=== PATIENT | female | born 1975 | race Caucasian/White ===

== ENCOUNTER 2016-08-18 09:00 | Emergency (ER) | payer BC, OTHER ==
--- NOTE | 2016-08-18 09:48 | UC ---
General HPI - HPI Summary HPI Summary: Patient presents with a request for blood work for PEP for work. She states yesterday after cleaning, she had already removed her gloves when a patron of her work handed her a used tampon applicator. She immediately placed it in the garbage and washed her hands thoroughly. She denies any scrapes or cuts or other open areas of her body. She is otherwise healthy and takes no medications. This has never happened before and she is unaware of the patron's medical status, HIV or Hep status, etc. - History of Current Complaint Chief Complaint: UCBodyFluidExposure Stated Complaint: BLOOD WORK NEEDED Time Seen by Provider: 08/18/16 09:16 Hx Obtained From: Patient Onset/Duration: Sudden Onset Timing: Constant Onset Severity: Mild Current Severity: Mild - Allergy/Home Medications Allergies/Adverse Reactions: Allergies Allergy/AdvReac Type Severity Reaction Status Date / Time Penicillins [PCN] Allergy Hives Verified 08/18/16 09:08 Home Medications: Home Medications NK [No Home Medications Reported] 08/18/16 [History Confirmed 08/18/16] PMH/Surg Hx/FS Hx/Imm Hx Previously Healthy: Yes - Surgical History Surgical History: None - Family History Known Family History: Positive: Unknown - Social History Occupation: Employed Full-time Lives: With Family Alcohol Use: None Substance Use Type: None Smoking Status (MU): Never Smoked Tobacco Review of Systems Constitutional: Negative Skin: Negative Eyes: Negative Respiratory: Negative Cardiovascular: Negative Neurovascular: Negative Musculoskeletal: Negative Psychological: Negative All Other Systems Reviewed And Are Negative: Yes Physical Exam Triage Information Reviewed: Yes Appearance: Well-Appearing, No Pain Distress, Well-Nourished Vital Signs: Initial Vital Signs Temp 99.0 F 08/18/16 09:04 Pulse 81 08/18/16 09:04 Resp 18 08/18/16 09:04 BP 166/112 08/18/16 09:04 Pulse Ox 99 08/18/16 09:04 Vital Signs Reviewed: Yes Eye Exam: Normal Eyes: Positive: Conjunctiva Clear Neck exam: Normal Neck: Positive: Supple, Nontender, No Lymphadenopathy Respiratory Exam: Normal Respiratory: Positive: Chest non-tender, Lungs clear Cardiovascular Exam: Normal Cardiovascular: Positive: RRR Musculoskeletal Exam: Normal Musculoskeletal: Positive: Strength Intact Neurological Exam: Normal Neurological: Positive: Alert Psychological: Positive: Normal Response To Family, Age Appropriate Behavior Skin Exam: Normal Course/Dx - Course Course Of Treatment: Patient was given PEP explanation and ordered the appropriate labs for PEP. Educated patient on HIV and she would like to defer at this time for HIV treatment. Will call within 2-3 days for results. Patients high blood pressure was noted. Advised to follow up next week for BP check up. Medications were reviewed with patient. Patient agrees to follow up with PCP and is OK with discharge plan. 188/103 last BP check. - Differential Dx - Multi-Symptom Differential Diagnoses: Other - PEP; exposure, HIV, blood borne illness, HTN Provider Diagnoses: PEP prophylaxis for blood exposure Discharge - Discharge Plan Condition: Stable Disposition: HOME
[2016-08-18 09:54] VITALS: BP 188/103
[2016-08-18 12:20] LABS: Hematocrit 39 % (35-47); Hemoglobin 12.7 g/dl (12.0-16.0); Mean Corpuscular HGB Conc 33 g/dl (31-36); Mean Corpuscular Hemoglobin 28 pg (27-31); Mean Corpuscular Volume 85 fL (80-97); Mean Platelet Volume 8 um3 (7.4-10.4); Red Cell Distribution Width 15 % (10.5-15); White Blood Count 7.5 10^3/ul (3.5-10.8)
[2016-08-18 12:38] LABS: ALT 14 U/L (7-52); AST 16 U/L (13-39); Albumin 4.1 g/dL (3.2-5.2); Alkaline Phosphatase 56 U/L (34-104); Anion Gap 6 mmol/L (2-11); BUN/Creatinine Ratio 15.2 (8-20); Blood Urea Nitrogen 15 mg/dL (6-24); CO2 Carbon Dioxide 27 mmol/L (22-32); Calcium 9.3 mg/dL (8.6-10.3); Chloride 106 mmol/L (101-111); EGFR African American 80.3 (>60); EGFR Non-African American 62.4 (>60); Globulin 2.7 g/dL (2-4); Glucose 105 mg/dL (70-100); Potassium 4.3 mmol/L (3.5-5.0); Sodium 139 mmol/L (133-145); Total Protein 6.8 g/dL (6.4-8.9)
--- NOTE | 2016-08-19 10:39 | ED ---
Course/Dx - Course Course Of Treatment: LAB RESULTS. CBC NL. GLUCOSE ELEVATED AT 105 (NL 70-100) . CREATININE ELEVATED AT 0.99 (NL 0.51-0.95). REST OF CMP NL. NEGATIVE. HEPATITIS SCREEN NEGATIVE. NURSING TO CALL PATIENT AND INFORM OF RESULT. PATIENT TO F/U WITH PMD FOR NON URGENT RECHECK OF BLOOD SUGAR AND CREATININE AND FOR ANY FURTHER POST BLOOD EXPOSURE FOLLOW UP - Diagnoses Provider Diagnoses: Exposure to blood
== END 2016-08-18 09:59 | disposition home or self-care (01) ==
LOC: UCEAST 09:00
DX: Z77.21 Contact with and (suspected) exposure to potentially hazardous body fluids (principal)
CPT/HCPCS: 36415; 80053; 84702; 85025; 86703; 86706; 86803; 87340; 99202; G0463

== ENCOUNTER 2017-10-17 07:13 | Emergency (ER) | payer BC, OTHER ==
[2017-10-17 07:26] VITALS: BP 185/97
--- NOTE | 2017-10-17 07:40 | ED ---
Complex/Multi-Sys Presentation - HPI Summary HPI Summary: IN-ROOM NOTE: Patient is a 42 y/o F w/ c/o bodyaches. In room patient reports she is CURRENTLY COLD. She had pinched nerve in back, which has since gotten unpinched. She states her LUMP POPS and PUS COMES OUT OF IT. Onset 9 days ago. No Hx of present Sx. Patient reports FEVER, 101 yesterday. She also notes CHILLS all morning. For past medical history, she denies any. Denies surgeries. She has diabetes and cardiac history in family, none personal. Goes to [employer] when sick. She works as maintenance. Patient was at work, VOMITED today. Sx have worsened since waking up this morning. Patient went camping for 1.5 weeks recently. She denies rash and Lyme Disease. Does not drink, used to smoke 19 years ago. Patient also notes NECK PAIN AND BILATERAL FRONTAL WEINER. No cough, notes SOB. No swelling of legs, no chest pain. Only vomited once, feels NAUSEOUS. Had DIARRHEA last two days. No one around her is sick, lives with and son. Patient has tonsils present. Has gone water tubing recently. Allergic to pencillin. MD NOTE: Vital signs stable, BMI: 32.9; afebrile BP: 185/97, pulse ox 98 5/10 discomfort. Visit history noncontributory to present complaint. No antihypertensive medications. NURSES NOTE: Pt c/o full bodyache, stiff neck, n/d, fevers. Pt states has small "bump" behind R ear that drains pus. Pt states small bump started 10/15/17. - History Of Current Complaint Hx Obtained From: Patient Onset/Duration: Lasting Days - nine days, Still Present, Worse Since Timing: Constant, Days - 9 days Severity Currently: Moderate - discomfort 4/10 on nurse Character: Typical Headache Associated Signs And Symptoms: Positive: Headache, SOB, Nausea, Vomiting, Diarrhea, Fever, Other - POSITIVE: BODYACHES, CHILLS, LUMP BEHIND RIGHT EAR NEGATIVE: RASH. Negative: Cough, Chest Pain, Edema - Allergies/Home Medications Allergies/Adverse Reactions: Allergies Allergy/AdvReac Type Severity Reaction Status Date / Time Penicillins Allergy Hives Verified 10/17/17 07:19 PMH/Surg Hx/FS Hx/Imm Hx Endocrine/Hematology History: Reports: Other Endocrine/Hematological Disorders - NEGATIVE: HLD Denies: Hx Diabetes Cardiovascular History: Denies: Hx Hypertension - Surgical History Surgery Procedure, Year, and Place: DENIES Infectious Disease History: No Infectious Disease History: Denies: Traveled Outside the [place] in Last 30 Days - Family History Known Family History: Positive: Cardiac Disease, Diabetes - Social History Alcohol Use: None Substance Use Type: Reports: None Smoking Status (MU): Former Smoker - 19 YEARS AGO Review of Systems Positive: Fever, Chills, Other - BODY ACHES Negative: Chest Pain Positive: Shortness Of Breath. Negative: Cough Positive: Vomiting, Diarrhea, Nausea Positive: Other - NECK PAIN . Negative: Edema Positive: Other - LUMP BEHIND RIGHT EAR . Negative: Rash Positive: Headache All Other Systems Reviewed And Are Negative: Yes - Comments Additional Review of Systems Comments: POSITIVE: CHILLS, PUS-LIKE LUMP BEHIND RIGHT EAR, VOMITED, NECK PAIN, BILATERAL FRONTAL WEINER, SOB, N/V/D NEGATIVE: COUGH, CHEST PAIN, EDEMA, RASH Physical Exam - Summary Physical Exam Summary: Appearance: The patient is well-appearing, is in no pain distress, and is well- nourished. Eyes: Conjunctiva are clear. ENT: The hearing is grossly normal, the pharynx is normal, TYMPANIC MEMBRANES NORMAL There is no muffled or hoarse voice. Neck: The neck is supple and there is no lymphadenopathy. NEGATIVE CERVICAL AXIAL ADENOPATHY. WITH FLEXION EXTENSION OF THE NECK THERE IS DISCOMFORT WITH RIGHT TRAP, NO SIGNIFICANT DISCOMFORT FROM MOVING SIDE TO SIDE. Respiratory: The chest is nontender. LUNGS CLEAR, there are normal breath sounds , and there is no respiratory distress. Cardiovascular: HEART REGULAR RATE AND RHYTHM. There is no murmur. Abdomen: ABDOMEN SOFT AND NONTENDER, BOWEL SOUNDS PRESENT Bowel sounds: present Musculoskeletal: Strength is intact. The patient moves all extremities. Neurological: The patient is alert. NEUROLOGICAL EXAM ; RHOMBERG NORMAL, HEEL TO TOE NORMAL, CRANIAL NERVES 2-12 INTACT. Psychological: The patient displays age appropriate behavior Skin: NO EVIDENT RASH ON SKIN RIGHT EAR EXAM: TRACHEAL REGION IS NONTENDER, THE PINNA IS NOT SWOLLEN OR RED, BEHIND THE PINNA, THERE IS MILD ERYTHEMA AT THE BORDER OF THE SCALP. THERE IS A .75 CM CYSTIC STRUCTURE THAT IS MODERATELY TENDER AND MIDLY INJECTED AT THE INFERIOR ASPECT OF THE BORDER BETWEEN SCALP AND EAR. THE ERYTHEMA IS LOCALIZED AND MILD ALONG THE COURSE OF THE BORDER OF THE EAR WITH NO EXTENSION, THERE IS NO ANTERIOR OR POSTERIOR ADENOPATHY OF THE NECK. Triage Information Reviewed: Yes Vital Signs On Initial Exam: Initial Vitals Temp Pulse Resp BP Pulse Ox 98.1 F 88 18 185/97 98 10/17/17 07:20 10/17/17 07:20 10/17/17 07:20 10/17/17 07:20 10/17/17 07:20 Vital Signs Reviewed: Yes Diagnostics - Vital Signs Vital Signs Temp Pulse Resp BP Pulse Ox 10/17/17 07:20 98.1 F 88 18 185/97 98 - Laboratory Lab Statement: Any lab studies that have been ordered have been reviewed, and results considered in the medical decision making process. Re-Evaluation - Re-Evaluation First Eval Re-Evaluation Time: 07:49 Comment: Discussed blood pressure levels with patient Complex Multi-Symp Course/Dx Course Of Treatment: Medications have been icluded in the original chart and reviewed. 3.Hypertensive BP reading 185/97; patient referred to PCP within 1 day - 4 weeks for follow up. Healthy 42 y/o F w/ bodyaches, transient fever, N/V /D. She also complains of pain and swelling behind right ear. Discussed Dx of viral syndrome and infected cyst/lymph node behind right ear. This does not feel like an abscess but it is also possible. I did not feel that this structure was suitable for drainage at this time. I will start her on Kelfex and warm soaks and follow up as needed. She knows she must be rechecked if the area should become red, hot or swollen. - Diagnoses Differential Diagnoses/HQI/PQRI: Other - abscess vs cellulitis vs lymphadenitis. Provider Diagnoses: Viral syndrome Discharge - Sign-Out/Discharge Documenting (check all that apply): Patient Departure - discharge All imaging exams completed and their final reports reviewed: No Studies - Discharge Plan Condition: Stable Disposition: HOME Prescriptions: Cephalexin CAP* [Keflex 500 CAP*] 500 mg PO TID #30 cap MDD 3 Patient Education Materials: Lymphadenopathy (ED), Viral Syndrome (ED) Forms: *Work Release Referrals: No Primary Care Phys,NOPCP [Primary Care Provider] - Additional Instructions: PLEASE SEEK CARE AT THE EMERGENCY DEPARTMENT IF SYMPTOMS WORSEN OR IF NEW SYMPTOMS DEVELOP. FOLLOW UP WITH YOUR PRIMARY CARE PHYSICIAN. 1. Your blood pressure was 185/97. As we discussed, follow up with your doctor in the next few weeks for this. 2. You have a viral syndrome. 3. You have an infected cyst or lymph node behind your right ear. The redness shouldn't spread. Use warm moist soaks, every 2 hours when awake, today and tomorrow. 4. Take Keflex for 7-10 days, 3 times a day. 5. Recheck at any time for increased pain, temperature or swelling. - Billing Disposition and Condition Condition: STABLE Disposition: Home - Attestation Statements Document Initiated by Ron: Yes Documenting Divineibe: Bandar Portillo Provider For Whom Ron is Documenting (Include Credential): Oscar Connell M.D. Scribe Attestation: Bandar Guadalupe scribed for Oscar Connell M.D. on 10/17/17 at 0817. Ron Documentation Reviewed: Yes Provider Attestation: The documentation as recorded by the Bandar lomeli accurately reflects the service I personally performed and the decisions made by me, Oscar Connell M.D.
== END 2017-10-17 08:00 | disposition home or self-care (01) ==
LOC: UCEAST 07:13
DX: R50.9 Fever, unspecified (principal); E11.9 Type 2 diabetes mellitus without complications; I10 Essential (primary) hypertension; Z88.0 Allergy status to penicillin
CPT/HCPCS: 99212; G0463

== ENCOUNTER 2023-03-12 12:57 | Inpatient (IN) ==
[2023-03-12] MEDS ORDERED: Ondansetron 4 mg VIAL 2 MG/ML 2 ml VIAL IV ONE (13:12)
[2023-03-12 13:33] LABS: ABS Basophils 0.1 10^3/uL (0.0-0.1); ABS Eosinophils 0.2 10^3/uL (0.0-0.5); ABS Lymphocytes 2.4 10^3/uL (1.0-4.8); ABS Monocytes 1.5 10^3/uL (0.0-0.9); ABS Neutrophils 9.7 10^3/uL (1.5-7.6); ABS Nucleated RBC 0.01 10^3/ul; Eosinophil % 1.4 %; Hematocrit 36.3 % (35-45); Hemoglobin 12.1 g/dL (11.5-14.3); Lymphocyte % 17.3 %; Mean Corpuscular Hgb Conc 33.4 g/dL (31-36); Mean Corpuscular Volume 86.9 fL (80-97); Nucleated Red Blood Cells % 0.1 %/100WBC (0.0-0.8); Platelet Count 356 10^3/uL (150-450); Red Blood Count 4.17 10^6/uL (3.63-4.92); Red Cell Distribution Width 14.3 % (12-17)
[2023-03-12 13:50] LABS: Albumin 3.9 g/dL (3.2-5.2); Albumin/Globulin Ratio 1.1 (1-3); C Reactive Protein 167.77 mg/L (<8.01); Calcium 9.4 mg/dL (8.6-10.3); Globulin 3.7 g/dL (2-4); Potassium 4.2 mmol/L (3.5-5.0); Total Bilirubin 0.7 mg/dL (0.2-1.0); Total Protein 7.6 g/dL (6.4-8.9); eGFR CKD-EPI 70.4 (>60)
[2023-03-12 14:28] LABS: Urine Appearance Cloudy; Urine Bilirubin Negative (Negative); Urine Blood 1+ (Negative); Urine Color Amber; Urine Glucose Negative (Negative); Urine Ketones Negative (Negative); Urine Nitrite Negative (Negative); Urine Protein 1+(30 mg/dL) (Negative); Urine Specific Gravity 1.021 (1.002-1.030); Urine Urobilinogen Negative (Negative)
[2023-03-12] MEDS ORDERED: Iohexol 300 (CONTRAST) 10 ML SDV IV ONE (14:35)
[2023-03-12 14:55] LABS: Urine Amorphous Crystals Present /HPF (Absent); Urine Bacteria 1+ (Absent); Urine Red Blood Cell 3+(>10/hpf) (Absent); Urine Squamous Epithelial Cell Present (Absent); Urine White Blood Cell Trace(0-5/hpf) (Absent)
[2023-03-12] MEDS ORDERED: cefTRIAXone 1 gm/50 mL D5W 1 GM/50 ML BAG IV ONE (15:03)
[2023-03-12] MEDS ORDERED: metroNIDAZOLE IV 500 MG/100ML 500 MG/100 ML BAG IVPB ONE (17:06)
[2023-03-12] MEDS ORDERED: Cefepime 2 GM in Dextrose 2 GM/50 ML BAG IV ONE (17:06)
[2023-03-12 17:40] LABS: Rapid COVID-19 Molecular Undetected (Undetected)
[2023-03-12 17:48] LABS: Influenza A Molecular Negative (Negative); Influenza B Molecular Negative (Negative)
[2023-03-12] MEDS ORDERED: D5W 1/2 NS KCl 20 meq 1000 ml 1,000 ML IV SCH (18:00)
[2023-03-12] MEDS ORDERED: HYDROmorphone 1 MG/1 ML SYRINGE IV SLOW PU PRN (18:01)
[2023-03-12] MEDS: Lactated Ringers 1000 ml BAG 1,000 ML IV SCH (18:45)
[2023-03-12] MEDS: Ondansetron 4 mg VIAL 2 MG/ML 2 ml VIAL IV PRN (19:42)
[2023-03-12] MEDS: Acetaminophen IV 1 GM/100ML 1,000 MG/100 ML BAG IV SCH (22:53)
[2023-03-13] MEDS ORDERED: metroNIDAZOLE IV 500 MG/100ML 500 MG/100 ML BAG IV SCH (01:00)
[2023-03-13] MEDS ORDERED: Ciprofloxacin 400mg IVPREMIX 400 MG/200 ML BAG IVPB SCH ×2 (01:00)
[2023-03-13] MEDS: metroNIDAZOLE IV 500 MG/100ML 500 MG/100 ML BAG IV SCH ×3 (01:43→17:26)
[2023-03-13] MEDS: Lactated Ringers 1000 ml BAG 1,000 ML IV SCH ×3 (02:57→21:04)
[2023-03-13 06:05] LABS: ABS Basophils 0.1 10^3/uL (0.0-0.1); ABS Eosinophils 0.3 10^3/uL (0.0-0.5); ABS Lymphocytes 1.8 10^3/uL (1.0-4.8); ABS Monocytes 1.5 10^3/uL (0.0-0.9); ABS Neutrophils 9.2 10^3/uL (1.5-7.6); Eosinophil % 2.2 %; Hematocrit 32.4 % (35-45); Hemoglobin 10.7 g/dL (11.5-14.3); Lymphocyte % 13.7 %; Mean Corpuscular Hemoglobin 28.8 pg (27-33); Mean Corpuscular Volume 87.3 fL (80-97); Platelet Count 288 10^3/uL (150-450); Red Blood Count 3.72 10^6/uL (3.63-4.92); Red Cell Distribution Width 14.1 % (12-17); White Blood Count 12.9 10^3/uL (3.8-11.8)
[2023-03-13] MEDS: Acetaminophen IV 1 GM/100ML 1,000 MG/100 ML BAG IV SCH ×3 (06:08→21:05)
[2023-03-13 06:27] LABS: Calcium 8.7 mg/dL (8.6-10.3); Creatinine, Serum 1.01 mg/dL (0.51-0.95); Potassium 4.3 mmol/L (3.5-5.0); eGFR CKD-EPI 69.5 (>60)
[2023-03-13] MEDS: Ondansetron 4 mg VIAL 2 MG/ML 2 ml VIAL IV PRN ×2 (11:53→17:26)
[2023-03-13] MEDS: Cefepime 2 GM in Dextrose 2 GM/50 ML BAG IV SCH (12:41)
[2023-03-14] MEDS: Cefepime 2 GM in Dextrose 2 GM/50 ML BAG IV SCH ×2 (00:32→11:15)
[2023-03-14] MEDS: metroNIDAZOLE IV 500 MG/100ML 500 MG/100 ML BAG IV SCH ×3 (01:15→16:52)
[2023-03-14] MEDS: Acetaminophen IV 1 GM/100ML 1,000 MG/100 ML BAG IV SCH ×3 (05:49→22:19)
[2023-03-14] MEDS: Lactated Ringers 1000 ml BAG 1,000 ML IV SCH ×2 (05:49→15:45)
[2023-03-14] MEDS: Ondansetron 4 mg VIAL 2 MG/ML 2 ml VIAL IV PRN ×2 (05:58→11:15)
[2023-03-14 11:57] LABS: ABS Basophils 0.1 10^3/uL (0.0-0.1); ABS Eosinophils 0.2 10^3/uL (0.0-0.5); ABS Lymphocytes 1.8 10^3/uL (1.0-4.8); ABS Monocytes 1.4 10^3/uL (0.0-0.9); ABS Neutrophils 11.9 10^3/uL (1.5-7.6); ABS Nucleated RBC 0.01 10^3/ul; Eosinophil % 1.5 %; Hematocrit 31.4 % (35-45); Hemoglobin 10.5 g/dL (11.5-14.3); Lymphocyte % 11.8 %; Mean Corpuscular Hemoglobin 29.2 pg (27-33); Mean Corpuscular Hgb Conc 33.5 g/dL (31-36); Mean Corpuscular Volume 86.9 fL (80-97); Mean Platelet Volume 8.2 fL (7.5-11.2); Platelet Count 307 10^3/uL (150-450); Red Blood Count 3.61 10^6/uL (3.63-4.92); Red Cell Distribution Width 14.3 % (12-17); White Blood Count 15.3 10^3/uL (3.8-11.8)
[2023-03-14 12:14] LABS: Calcium 8.5 mg/dL (8.6-10.3); Creatinine, Serum 0.93 mg/dL (0.51-0.95); Potassium 3.8 mmol/L (3.5-5.0); eGFR CKD-EPI 76.8 (>60)
[2023-03-14] MEDS ORDERED: Calcium Carb (TUMS) 500 mg CHEW TAB PO ONE (22:20)
[2023-03-15] MEDS: Cefepime 2 GM in Dextrose 2 GM/50 ML BAG IV SCH (00:28)
[2023-03-15] MEDS: metroNIDAZOLE IV 500 MG/100ML 500 MG/100 ML BAG IV SCH ×2 (01:59→09:15)
[2023-03-15] MEDS: Lactated Ringers 1000 ml BAG 1,000 ML IV SCH (01:59)
[2023-03-15] MEDS: Acetaminophen IV 1 GM/100ML 1,000 MG/100 ML BAG IV SCH (06:17)
[2023-03-15 10:06] VITALS: BP 154/93
[2023-03-15 10:17] LABS: ABS Basophils 0.1 10^3/uL (0.0-0.1); ABS Eosinophils 0.2 10^3/uL (0.0-0.5); ABS Lymphocytes 2.1 10^3/uL (1.0-4.8); ABS Monocytes 0.6 10^3/uL (0.0-0.9); ABS Neutrophils 8.7 10^3/uL (1.5-7.6); Eosinophil % 2.1 %; Hematocrit 30.3 % (35-45); Hemoglobin 10.2 g/dL (11.5-14.3); Lymphocyte % 18.4 %; Mean Corpuscular Hemoglobin 29.1 pg (27-33); Mean Corpuscular Hgb Conc 33.8 g/dL (31-36); Mean Corpuscular Volume 86.2 fL (80-97); Mean Platelet Volume 8.4 fL (7.5-11.2); Platelet Count 310 10^3/uL (150-450); Red Blood Count 3.52 10^6/uL (3.63-4.92); Red Cell Distribution Width 14.4 % (12-17); White Blood Count 11.7 10^3/uL (3.8-11.8)
== END 2023-03-15 12:45 | disposition home or self-care (01) | DRG 248 ==
LOC: ED 12:57 → EDHOLD 18:01 → MED 22:32
PROVIDERS: ADMIT Surgery; ATTEND Surgery